=== PATIENT | female | born 1975 | race Caucasian/White ===

== ENCOUNTER 2023-05-09 05:45 | Emergency (ER) | payer SELFPAY ==
[~2023-05-09] VITALS: Ht 170.2 cm; Wt 72.7 kg
[2023-05-09 05:50] VITALS: BP 124/84; PULSE 73; RESP 14; TEMP 98; O2SAT 100
== END 2023-05-09 07:17 | disposition left against medical advice (07) ==
LOC: ER 05:45
DX: M79.671 Pain in right foot (principal); M79.672 Pain in left foot; B37.31 Acute candidiasis of vulva and vagina; Z53.21 Procedure and treatment not carried out due to patient leaving prior to being seen by health care provider
CPT/HCPCS: 99281

== ENCOUNTER 2023-08-19 19:42 | Emergency (ER) | payer SELFPAY ==
[~2023-08-19] VITALS: Ht 165.1 cm; Wt 68.2 kg
[2023-08-19 19:44] VITALS: TEMP 98
[2023-08-19] MEDS ORDERED: DOXYCYCLINE 100MG CAPSULE PO STA (21:24)
[2023-08-19] MEDS ORDERED: oxyCODONE/APAP 5-325mg tablet PO ONE (21:25)
[2023-08-19] MEDS ORDERED: cephalexin 250mg capsule PO ONE (21:25)
[2023-08-19] MEDS ORDERED: CEPH250T PO (21:29)
[2023-08-19] MEDS ORDERED: DOXY-356 PO (21:29)
[2023-08-19] MEDS ORDERED: HYDROcodone/acetaminophen 5mg/325mg tablet PO ONE (21:55)
[2023-08-19 22:16] VITALS: RESP 16
[2023-08-19 23:47] VITALS: BP 154/98; PULSE 78; O2SAT 98
== END 2023-08-19 23:55 | disposition home or self-care (01) ==
LOC: ER 19:43
DX: L08.89 Other specified local infections of the skin and subcutaneous tissue (principal); Z88.0 Allergy status to penicillin; Z91.040 Latex allergy status; Z79.899 Other long term (current) drug therapy
CPT/HCPCS: 26010; 99283